=== PATIENT | male | born 1970 | race Caucasian/White ===

== ENCOUNTER 2021-04-18 16:21 | Emergency (ER) | payer OTHER ==
[~2021-04-18] VITALS: Ht 167.6 cm; Wt 72.4 kg
[2021-04-18] MEDS ORDERED: ONDANSETRON PF 4 MG/2 ML VIAL. ONE (16:34)
[2021-04-18] MEDS ORDERED: IV NORMAL SALINE 1,000ML 1,000 ML IV ONE (16:45)
[2021-04-18 16:54] LABS: BASO % 1 % (0-3); EOS % 0 % (0-3); HEMATOCRIT 42.6 % (39.0-53.0); HEMOGLOBIN 14.6 g/dL (13.0-17.5); LYMPH # 1.6 x10^3/uL (1.0-4.8); LYMPH % 25 % (24-48); MEAN CORPUSCULAR HEMOGLOBIN 30 pg (25-35); MEAN CORPUSCULAR HGB CONC 34 g/dL (31-37); MEAN CORPUSCULAR VOLUME 88 fL (79-100); MONO # 0.6 x10^3/uL (0.0-1.1); MONO % 9 % (0-9); NEUT # 4.1 x10^3uL (1.8-7.7); NEUT % 65 % (31-73); PLATELET COUNT 168 x10^3/uL (140-400); RED BLOOD COUNT 4.84 x10^6/uL (4.30-5.70); RED CELL DISTRIBUTION WIDTH 18.5 % (11.5-14.5); WHITE BLOOD COUNT 6.4 x10^3/uL (4.0-11.0)
--- NOTE | 2021-04-18 16:55 | PHYS DOC ---
General Adult EDM: Chief Complaint: MULTIPLE COMPLAINTS HPI: HPI: 51-year-old male presents via EMS with vomiting and alcohol intoxication. The patient tells me that he is a daily drinker. He drank vodka from about 8:00 in the morning until noon. He had several episodes of vomiting mixed in with this. He has been vomiting for 2 days. He thought he might have noticed some blood in it so he decided come the emergency room. He tells me that he cannot keep anything down and just keeps vomiting. (RENATO MILAN DO) Review of Systems: Review of Systems: Constitutional: Denies fever or chills Eyes: Denies change in visual acuity HENT: Denies nasal congestion or sore throat Respiratory: Denies cough or shortness of breath Cardiovascular: Denies chest pain or edema GI: nausea, vomiting. Denies abdominal pain, bloody stools or diarrhea : Denies dysuria Musculoskeletal: Denies back pain or joint pain Integument: Denies rash Neurologic: Denies headache, focal weakness or sensory changes Endocrine: Denies polyuria or polydipsia Lymphatic: Denies swollen glands Psychiatric: Denies depression or anxiety (RENATO MILAN DO) Current Medications: Current Meds: Current Medications Medications (Trade) Dose Ordered Sig/Sumaya Start Time Stop Time Status Last Admin Dose Admin Ondansetron HCl (Zofran) 4 mg STK-MED ONCE 04/18/21 16:34 04/18/21 16:34 DC Sodium Chloride 1,000 ml @ 1,000 mls/hr 1X ONCE 04/18/21 16:45 04/18/21 17:44 UNV (RENATO MILAN DO) Physical Exam: PE: Constitutional: Well developed, well nourished, no acute distress, intoxicated. [] HENT: Normocephalic, atraumatic, bilateral external ears normal, oropharynx moist, no oral exudates, nose normal. [] Eyes: PERRLA, EOMI, conjunctiva normal, no discharge. [] Neck: Normal range of motion, no tenderness, supple, no stridor. [] Cardiovascular: Heart rate 110, regular rhythm, no murmur [] Lungs & Thorax: Bilateral breath sounds clear to auscultation [] Abdomen: Bowel sounds normal, soft, no tenderness, no masses, no pulsatile masses. [] Skin: Warm, dry, no erythema, no rash. [] Back: No tenderness, no CVA tenderness. [] Extremities: No tenderness, no cyanosis, no clubbing, ROM intact, no edema. [] Neurologic: Alert and oriented X 3, normal motor function, normal sensory function, no focal deficits noted. [] Psychologic: Affect normal, judgement normal, mood normal. [] (RENATO MILAN DO) EKG: EKG: Sinus rhythm, rate 110, leftward axis, right bundle branch block, no ST elev ation or depression. [] (RENATO MILAN DO) Radiology/Procedures: Radiology/Procedures: [] (RENATO MILAN DO) Heart Score: C/O Chest Pain: N/A Risk Factors: Risk Factors: DM, Current or recent (<one month) smoker, HTN, HLP, family history of CAD, obesity. Risk Scores: Score 0 - 3: 2.5% MACE over next 6 weeks - Discharge Home Score 4 - 6: 20.3% MACE over next 6 weeks - Admit for Clinical Observation Score 7 - 10: 72.7% MACE over next 6 weeks - Early Invasive Strategies (RENATO MILAN DO) Course & Med Decision Making: Course & Med Decision Making Pertinent Labs and Imaging studies reviewed. (See chart for details) The patient's labs are pending. He initially decreased his oxygen saturation to 88% when he fell asleep. We placed him on a liquid of supplemental oxygen. He has been given a liter normal saline and 4 mg of Zofran. I'm signing patient out to my colleague Dr. Kelsey at 1800. [] (RENATO MILAN DO) Course & Med Decision Making See Dr. Milan chart for detail before shift change. Patient declines referral to RSI or inpatient alcohol withdrawal. Patient avoid further alcohol use. Patient follow-up primary care. Patient take multivitamin. Patient return if any concerns. Impression: 1. Alcohol abuse- 382 2. Gastritis/GERD 3. Elevated AST 577, ALt 523 4. Mild Hypokalemia 3.3 5. Bili 2.4 (TOMMY KELSEY MD) Dragon Disclaimer: Drag[employer] Disclaimer: This electronic medical record was generated, in whole or in part, using a voice recognition dictation system. (RENATO MILAN DO) Departure Departure: Impression: Primary Impression: Vomiting Referrals: PCP,NO (PCP) Scripts Famotidine (PEPCID) 20 Mg Tablet 20 MG PO BID for GERD, Gastritis, #60 TAB Prov: TOMMY KELSEY MD 04/18/21 [place] Disclaimer This chart was dictated in whole or in part using Voice Recognition software in a busy, high-work load, and often noisy Emergency Department environment. It may contain unintended and wholly unrecognized errors or omissions. (TOMMY KELSEY MD) RENATO MILAN DO Apr 18, 2021 16:55 TOMMY KELSEY MD Apr 18, 2021 18:20
[2021-04-18] MEDS ORDERED: ONDANSETRON PF 4 MG/2 ML VIAL. IVP ONE ×3 (17:00→19:15)
[2021-04-18 17:02] LABS: CALCIUM 8.1 mg/dL (8.5-10.1); GFR 78.2; POTASSIUM 3.3 mmol/L (3.5-5.1)
[2021-04-18 17:04] LABS: GASTRIC OB PAT NEGATIVE (NEG)
[2021-04-18 17:08] LABS: ALBUMIN 3.8 g/dL (3.4-5.0); ALBUMIN/GLOBULIN RATIO 1.2 (1.0-1.7); TOTAL BILIRUBIN 2.4 mg/dL (0.2-1.0); TOTAL PROTEIN 7.1 g/dL (6.4-8.2)
--- NOTE | 2021-04-18 17:36 | EKG ---
[address] [address] Test Date: 2021-04-18 Test Time: 16:49:10 Pat Name: ELIO POZO Department: Room: Gender: M Supervisor [employer]: RADHA : 1970 Requested By: RENATO MILAN Order Number: [id number] Reading MD: Mirza Frias MD Measurements Intervals [place] Rate: 110 P: 30 NV: 144 QRS: -26 QRSD: 132 T: 10 QT: 350 QTc: 479 Interpretive Statements SINUS TACHYCARDIA RBBB LAFB LATERAL ISCHEMIA Electronically Signed On 04-21-2021 10:20:28 [employer] by Mirza Frias MD
[2021-04-18] MEDS ORDERED: FAMO-63 PO (19:11)
[2021-04-18] MEDS ORDERED: IV RINGERS SOLUTION,LACTATED 1,000 ML IV ONE (19:15)
[2021-04-18] MEDS ORDERED: MAGNESIUM HYDROXIDE 2,400 MG/30 ML ORAL.SUSP. PO ONE (19:15)
[2021-04-18] MEDS ORDERED: CALCIUM CARBONATE 500 MG TAB.CHEW PO PRN (19:15)
[2021-04-18] MEDS ORDERED: FAMOTIDINE 20 MG/2 ML VIAL IVP ONE (19:15)
[2021-04-18 20:23] LABS: BARBITURATES NEG (NEG); BENZODIAZEPINES NEG (NEG); CANNABINOIDS NEG (NEG); COCAINE NEG (NEG); METHADONE NEG (NEG); OPIATES NEG (NEG); PHENCYCLIDINE NEG (NEG)
[2021-04-18 20:25] LABS: AMPHETAMINE/METHAMPHETAMINE NEG (NEG)
[2021-04-18 20:37] LABS: CLARITY,URINE CLEAR; COLOR,URINE AMBER; GLUCOSE,URINE NEG (NEG)
[2021-04-18 20:38] LABS: BACTERIA,URINE 0 /HPF (0-FEW); NITRITE,URINE NEG (NEG); RBC,URINE OCC /HPF (0-2); SQUAMOUS EPITHELIAL CELL,UR OCC /LPF; WBC,URINE 0 /HPF (0-4)
[2021-04-18] MEDS ORDERED: PROCHLORPERAZINE 10 MG/2 ML VIAL. IV ONE (21:15)
[2021-04-18] MEDS ORDERED: diphenhydrAMINE 50 MG/ML VIAL IVP ONE (21:15)
[2021-04-18 22:22] VITALS: BP 159/98
== END 2021-04-18 22:23 | disposition home or self-care (01) ==
LOC: EDBD 16:21 → ER 16:21
DX: F10.10 Alcohol abuse, uncomplicated (principal); Y90.8 Blood alcohol level of 240 mg/100 ml or more; R79.89 Other specified abnormal findings of blood chemistry; E87.6 Hypokalemia
CPT/HCPCS: 36415; 80053; 80307; 81001; 82271; 85025; 93005; 96361; 96374; 96375; 96376; 99284; G0480; J0780; J1200; J2405; J3490; J7030; J7120